=== PATIENT | female | born 1945 | race Caucasian/White ===

== ENCOUNTER 2018-06-19 18:33 | Emergency (ER) | payer OTHER ==
[~2018-06-19] VITALS: Wt 60.0 kg
[~2018-06-19 18:33] MED LIST: METF500T24 PO
[2018-06-19] MEDS ORDERED: IBUPROFEN 800 MG TAB PO ONE (19:30)
--- NOTE | 2018-06-19 20:44 | ERD ---
ER Documentation Chief Complaint Chief Complaint FACIAL PAIN S/P FALL LAST NIGHT HPI This is 73-year-old female who was walking last night and she tripped on the sidewalk and fell onto her face on the concrete. She did not get knocked unconscious. She has no headache no neck pain, she does have some swelling to her upper lip. No laceration. No nausea no vomiting no excessive sleepiness ROS All systems reviewed and are negative except as per history of present illness. Medications Home Meds Reported Medications Metformin Hcl* (Metformin Hcl*) 500 Mg Tablet, 500 MG PO WITH BREAKFAST, #30 TAB 01/20/15 Allergies Allergies: Coded Allergies: No Known Allergy (Unverified , 01/20/15) PMhx/Soc History of Surgery: No Anesthesia Reaction: No Hx Neurological Disorder: No Hx Respiratory Disorders: No Hx Cardiac Disorders: No Hx Psychiatric Problems: No Hx Miscellaneous Medical Probl: No Hx Alcohol Use: No Hx Substance Use: No Hx Tobacco Use: No FmHx Family History: No coronary disease Physical Exam Vitals Vital Signs Date Temp Pulse Resp B/P (MAP) Pulse Ox O2 O2 Flow FiO2 Time Delivery Rate 06/19/18 99.1 91 18 162/89 97 18:37 (113) Physical Exam Const: Well-developed, well-nourished Head: Atraumatic, normocephalic Eyes: Normal Conjunctiva, PERRLA, EOMI, normal sclera, no nystagmus ENT: Normal External Ears, Nose and, the upper lip is swollen there is no laceration there is an abrasion to the top of the lip moist mucus membranes. Neck: Full range of motion. No meningismus, no lymphadenopathy. Resp: Clear to auscultation bilaterally, no wheezing, rhonchi, rales Cardio: Regular rate and rhythm, no murmurs, S1 S2 present Abd: Soft, non tender x 4, non distended. Normal bowel sounds, no guarding or rebound, no pulsitile abdominal masses or bruits Skin: No petechiae or rashes, no ecchymosis , no maculopapular rash Back: No midline or flank tenderness Ext: No cyanosis, or edema, FROM x 4, normal inspection, neurovascularly intact x 4 Neur: Awake and alert, STR 5/5 x 4, sensation intact x 4, no focal findings, cerebellum intact Psych: Normal Mood and Affect Ad: Atraumatic Eyes: Normal Conjunctiva ENT: Normal External Ears, Nose and Mouth. Neck: Full range of motion. No meningismus. Resp: Clear to auscultation bilaterally Cardio: Regular rate and rhythm, no murmurs Abd: Soft, non tender, non distended. Normal bowel sounds Skin: No petechiae or rashes Back: No midline or flank tenderness Ext: No cyanosis, or edema Neur: Awake and alert Psych: Normal Mood and Affect Results 24 hrs Current Medications Medications Dose Sig/Mae Start Time Status Last (Trade) Ordered Route PRN Stop Time Admin Dose Reason Admin Ibuprofen 800 mg ONCE ONCE 06/19/18 DC 06/19/18 (Motrin) PO 19:30 20:14 06/19/18 19:31 Procedures/[place] [id number] Radiology Main Line: [phone] DIAGNOSTIC IMAGING REPORT Patient: JASON FITZPATRICK : 1945 Age: 73 Sex: F MR #: [id number] DOS: 06/19/181926 Ordering MD: LUIS FELIPE LAWRENCE DO Location: E/R Room/Bed: PROCEDURE: CT Brain without contrast. CLINICAL INDICATION: Trauma, fall, pain TECHNIQUE: A CT of the brain was performed utilizing axial imaging from the skull base through the vertex without intravenous contrast. Multiplanar reform atted images were made.The CTDIvol is 39.42 mGy and the DLP is 634.23 mGycm. One or more the following dose reduction techniques were utilized: Automated exposure control, adjustment of the mA and / or kV according to patient's size, or use of iterative reconstruction technique. DICOM images are available. COMPARISON: None. FINDINGS: There is no intracranial hemorrhage, mass effect, or midline shift. No extra- axial fluid collection is seen. Mild atrophy is identified with compensatory ventricular and sulcal enlargement. Minimal decreased attenuation is seen in the periventricular and deep white matter, compatible with microvascular ischemic disease. The alegria white matter differentiation is well preserved with no acute infarct detected. The osseous structures and visualized paranasal sinuses are unremarkable. IMPRESSION: 1. No evidence of acute intracranial pathology. 2. Mild diffuse atrophy. 3. There is minimal microvascular ischemic disease in the periventricular and deep white matter. RPTAT: HJES .Dilan Ferreira MD, MD Date Time Electronically viewed and signed by .Dilan Ferreira MD, MD on 06/19/2018 20:05 .S/ CC: LUIS FELIPE LAWRENCE DO [id number] [place] [id number] Radiology Main Line: [phone] DIAGNOSTIC IMAGING REPORT Patient: JASON FITZPATRICK : 1945 Age: 73 Sex: F MR #: [id number] DOS: 06/19/181926 Ordering MD: LUIS FELIPE LAWRENCE DO Location: E/R Room/Bed: PROCEDURE: CT facial bones without contrast CLINICAL INDICATION: Trauma , fall, pain TECHNIQUE: A CT of the facial bones was performed utilizing high-resolution axial images. Sagittal and coronal reformatted images were made. The CTDIvol is 29.41 mGy and the DLP is 611.04 mGy-cm. One or more the following dose reduction techniques were utilized: Automated exposure control, adjustment of the mA and / or kV according to patient's size, or use of iterative reconstruction technique. DICOM images are available. COMPARISON: None. FINDINGS: The osseous structures are intact with no evidence of fracture. The orbits, as visualized, appear intact. The overlying soft tissues are grossly unremarkable. The visualized paranasal sinuses are clear. Degenerative enthesopathy in cervical spine. IMPRESSION: Negative CT of the facial bones with no evidence of acute traumatic injury. RPTAT: HJES .Dilan Ferreira MD, MD Date Time Electronically viewed and signed by .Dilan Ferreira MD, MD on 06/19/2018 20:08 .S/ CC: LUIS FELIPE LAWRENCE DO [id number] Patient has no evidence of facial trauma/fracture or head injury. Will discharge home with precautions Departure Diagnosis: Primary Impression: Head injury Encounter type: initial encounter Qualified Codes: S09.90XA - Unspecified injury of head, initial encounter Additional Impression: Contusion, lip Encounter type: initial encounter Qualified Codes: S00.531A - Contusion of lip, initial encounter Condition: Stable LUIS FELIPE LAWRENCE DO June 19, 2018 20:44
[2018-06-19] MEDS ORDERED: HYDR-4011 PO (20:45)
[2018-06-19 21:06] VITALS: BP 132/78; PULSE 76; RESP 16
== END 2018-06-19 21:07 | disposition home or self-care (01) ==
LOC: E/R 18:33
DX: S00.531A Contusion of lip, initial encounter (principal); R51 Headache; W01.0XXA Fall on same level from slipping, tripping and stumbling without subsequent striking against object, initial encounter; Y92.9 Unspecified place or not applicable; Z79.84 Long term (current) use of oral hypoglycemic drugs
CPT/HCPCS: 70450; 70486